=== PATIENT | female | born 1960 | race Caucasian/White ===

== ENCOUNTER 2016-11-10 18:33 | Emergency (ER) | payer SELFPAY ==
[~2016-11-10] VITALS: Ht 172.7 cm; Wt 70.3 kg
[~2016-11-10 18:33] MED LIST: AZIT250T PO
--- NOTE | 2016-11-10 19:10 | NUR ---
DR. FRAZIER IN ROOM FOR TOAN.
--- NOTE | 2016-11-10 20:14 | NUR ---
Patient discharged to home in stable conditon. Written and verbal after care instructions given. Patient verbalizes understanding of instructions. PATIENT LEFT WITH STABLE GAIT.
[2016-11-10 20:15] VITALS: BP 120/90
== END 2016-11-10 20:25 | disposition home or self-care (01) ==
LOC: ER 18:33
DX: S39.012A Strain of muscle, fascia and tendon of lower back, initial encounter (principal); V49.9XXA Car occupant (driver) (passenger) injured in unspecified traffic accident, initial encounter; Y93.89 Activity, other specified; Y92.413 State road as the place of occurrence of the external cause; Y99.9 Unspecified external cause status
CPT/HCPCS: 71010; 72100; A4663